=== PATIENT | female | born 1980 | race African-American/Black ===

== ENCOUNTER 2017-02-02 07:57 | Day surgery (SDC) | payer OTHER ==
[~2017-02-02] VITALS: Ht 165.1 cm; Wt 52.0 kg
[~2017-02-02 07:57] MED LIST: NOHOMEMEDS
[2017-02-02 08:19] VITALS: BP 126/58
[2017-02-02 09:09] LABS: EOSINOPHIL (%) 2.4 % (0-5); EOSINOPHIL COUNT 0.1 K/uL (0-0.3); HEMATOCRIT 35.1 % (36.0-46.0); INSTRUMENT ABS NEUTROPHIL CT 1.2 K/uL; LYMPHOCYTE COUNT 0.9 K/uL (1.0-2.8); MCH 31.4 PG (29.0-34.0); MCV 94.9 FL (83-99); MEAN PLAT.VOLUME 11.7 uM^3 (9.5-12.4); MONOCYTE (%) 10.1 % (3-12); MONOCYTE COUNT 0.3 K/uL (0-0.8); NEUTROPHIL COUNT 1.2 K/uL (1.8-6.4); PLATELET COUNT 173 K/uL (156-360); RBC DIS.WIDTH-CV 11.2 % (11.8-14.6); RBC DIS.WIDTH-SD 38.8 % (39-53); WHITE BLOOD COUNT 2.5 K/uL (4.1-10.2)
[2017-02-02] MEDS ORDERED: VICODIN 5-3001 EACH PO (09:11)
[2017-02-02] MEDS ORDERED: MOTRIN800 MG PO (09:11)
[2017-02-02 11:20] VITALS: BP 114/63
[2017-02-02 12:39] VITALS: BP 108/59
== END 2017-02-02 13:00 | disposition home or self-care (01) ==
LOC: SDC 07:57
PROVIDERS: Obstetrics & Gynecology
PROC: 0UBC8ZX Excision of Cervix, Via Natural or Artificial Opening Endoscopic, Diagnostic (ICD-10-PCS; principal; 2017-02-02)
DX: D06.7 Carcinoma in situ of other parts of cervix (principal)
CPT/HCPCS: 84702; 85025; 86900; 86901; 88305; 88307; J0131; J1100; J1885; J2250; J2405; J3010